=== PATIENT | male | born 1970 | race Caucasian/White ===

== ENCOUNTER → 2017-08-16 | Outpatient (CLI) | payer MEDICAID | LOC: FIMAGING 14:22 | PROVIDERS: ATTEND Physician Assistant Medical | DX: Z03.89 Encounter for observation for other suspected diseases and conditions ruled out (principal) ==

== ENCOUNTER 2017-08-25 14:02 | Day surgery (SDC) | payer MEDICAID ==
--- NOTE | 2017-08-24 15:15 | GHP ---
[f rep st] PREOP HISTORY AND PHYSICAL ADMISSION NOTE: ADMISSION DIAGNOSIS: Ureterolithiasis. HISTORY OF PRESENT ILLNESS: This is a 46-year-old gentleman who had been in the emergency room for l eft flank pain, and it was noted that he had a left 5 mm ureteral stone with mild hydronephrosis. Ri ght kidney was smaller in size. He has coronary artery disease and aortic atherosclerosis. PAST MEDICAL HISTORY: Positive for kidney stones. PAST SURGICAL HISTORY: Kidney stones, hip and umbilical hernia. MEDICATIONS: Flomax. ALLERGIES: No known drug allergies. FAMILY HISTORY: Noncontributory. SOCIAL HISTORY: Unemployed. Former tobacco smoker. Denies illicit drug use and never has consumed alcohol. REVIEW OF SYSTEMS: Negative cardiac, respiratory, GI and endocrine. PHYSICAL EXAM: VITALS: On admission, blood pressure 132/88, heart rate 77, respirations 16. O2 sat uration on room air 94%. HEAD, EARS, EYES, NOSE, THROAT: Normal. CHEST: Clear. HEART: Regular r ate and rhythm. ABDOMEN: Normal. No organomegaly, rebound or guarding. EXTREMITIES: Lower extremi ties are normal. ASSESSMENT/PLAN: He is admitted for left ureteral stone treatment. /[id number]/MODL
--- NOTE | 2017-08-25 08:30 | PDHPUP ---
History & Physical Update H&P update statement: This history and physical update is based on an assessment of the patient which was completed after admission or registration (within 24 hours), but prior to the surgery/procedure. H&P update: H&P reviewed & patient examined, no change in patient's condition since H&P completed
[2017-08-25] MEDS ORDERED: ceFAZolin 2 GM/DEXTROSE 100 ML IV ONE (14:16)
[2017-08-25] MEDS ORDERED: LR 1,000 ML IV ONE (14:18)
--- NOTE | 2017-08-25 14:30 | PDANEPAE ---
ANE Review of Systems Review of Systems: ANE Patient History - Allergies Allergies/Adverse Reactions: No Known Drug Allergies Allergy (Verified 08/25/17 08:31) ANE Labs/Vital Signs - Vital Signs Height: 187.96 cm Weight: 95.254 kg ANE Physical Exam - Airway Neck exam: FROM Mallampati Score: Class 2 Mouth exam: poor dentition - Pulmonary Pulmonary: no respiratory distress - Cardiovascular Cardiovascular: regular rate and rhythym - ASA Status ASA Status: II ANE Anesthesia Plan Anesthesia Plan: general endotracheal anesthesia
[2017-08-25] MEDS ORDERED: LIDOCAINE 2% JELLY 20 ML (UROJECT) ONE (15:53)
[2017-08-25] MEDS ORDERED: IOPAMIDOL (ISOVUE-M 300) 15 ML VIAL ONE (15:53)
[2017-08-25] MEDS ORDERED: MIDAZOLAM 2 MG/2 ML VIAL ONE (15:54)
[2017-08-25] MEDS ORDERED: PROPOFOL 200 MG/20 ML VIAL ONE (15:55)
[2017-08-25] MEDS ORDERED: LIDOCAINE 2% 100 MG/5 ML SYR ONE (15:55)
[2017-08-25] MEDS ORDERED: fentaNYL 250 MCG/5 ML INJ ONE (15:55)
[2017-08-25] MEDS ORDERED: METOCLOPRAMIDE 10 MG/2 ML VIAL ONE (15:55)
[2017-08-25] MEDS ORDERED: ROCURONIUM 50 MG/5 ML VIAL ONE (15:55)
[2017-08-25] MEDS ORDERED: GLYCOPYRROLATE 0.2 MG/1 ML VIAL ONE ×2 (16:43)
[2017-08-25] MEDS ORDERED: NEOSTIGMINE METHYLSULFATE 5 MG/5 ML SYR ONE (16:43)
[2017-08-25] MEDS ORDERED: ONDANSETRON 4 MG/2 ML VIAL IVP PRN (17:10)
[2017-08-25] MEDS ORDERED: fentaNYL 100 MCG/2 ML INJ IVP PRN (17:10)
[2017-08-25] MEDS ORDERED: NALOXONE HCL 0.4 MG/ML INJ IVP PRN (17:10)
[2017-08-25] MEDS ORDERED: ALBUTEROL 3 ML DEYVIAL IH PRN (17:10)
--- NOTE | 2017-08-25 17:10 | POSTOPPROG ---
Post Op Note Date of Operation: 08/25/17 Surgeon: Prasanna Basurto Anesthesia: LMA Pre-op Diagnosis: ureterolithiasis Post-op Diagnosis: same Indication: same Procedure: ureteroscopy--dictated Inf/Abcess present in the surg proc area at time of surgery?: No EBL: Minimal Drains: Other (stent, stone for analysis)
--- NOTE | 2017-08-25 17:11 | POSTANESTH ---
Post Anesthetic Evaluation Cardiovascular Status: Similar to Pre-Op Cond Respiratory Status: Similar to Pre-op Cond. Level of Consciousness/Mental Status: Mildly Sleepy, Arousable Pain Control: Adequate, Prn Tx Ordered Nausea/Vomiting Control: Adequate, Prn Tx Ordered Complications Possibly Related to Anesthesia: None Noted
--- NOTE | 2017-08-25 17:34 | GOP ---
[f rep st] OPERATIVE REPORT DATE OF OPERATION: 08/25/2017 SURGEON: Prasanna Basurto MD PREOPERATIVE DIAGNOSIS: Left ureterolithiasis with pain and hydronephrosis. POSTOPERATIVE DIAGNOSIS: Left ureterolithiasis with pain and hydronephrosis. PROCEDURE PERFORMED: Cystoscopy, retrograde ureteropyelogram, dilation of ureter, fluoroscopy, and laser lithotripsy and extraction of stone and placement of a stent. FINDINGS: stone and hydro with hutch tics DESCRIPTION OF PROCEDURE: This gentleman underwent general anesthesia, prepped and draped in normal sterile fashion. After appropriate time-out, the scope was passed into the bladder under direct vision and he had Hutch diverticula bilaterally. I was able to cannulate the left ureteral orifice and pass a guidewire up beyond the stone and then the ureteral access sheath and the inner working part, which dilated the ureter. Then, I went up with the scope and the laser lithotrite, fractured the stone, and then extracted it. Because of the size of the stone and the inflammation, at that point a ureteral stent was passed under fluoroscopic control, curl in the renal pelvis and curl in the bladder. I placed Urojet into the urethra and a 16 Martinez catheter. We will have them remove the catheter prior to discharge. He will be discharged home to see me in a week for stent removal. /[id number]/MODL MTDD
[2017-08-25 18:05] VITALS: BP 144/96
== END 2017-08-25 18:25 | disposition home or self-care (01) ==
LOC: FSGY 14:02
PROVIDERS: ATTEND Specialist
PROC: 0T778DZ Dilation of Left Ureter with Intraluminal Device, Via Natural or Artificial Opening Endoscopic (ICD-10-PCS; principal; 2017-08-25 15:00)
PROC: 0TC78ZZ Extirpation of Matter from Left Ureter, Via Natural or Artificial Opening Endoscopic (ICD-10-PCS; principal; 2017-08-25 15:00)
PROC: BT17YZZ Fluoroscopy of Left Ureter using Other Contrast (ICD-10-PCS; principal; 2017-08-25 15:00)
PROC: 0TF78ZZ Fragmentation in Left Ureter, Via Natural or Artificial Opening Endoscopic (ICD-10-PCS; principal; 2017-08-25 15:00)
DX: N13.2 Hydronephrosis with renal and ureteral calculous obstruction (principal); I25.10 Atherosclerotic heart disease of native coronary artery without angina pectoris; I70.0 Atherosclerosis of aorta; Z87.442 Personal history of urinary calculi; Z87.891 Personal history of nicotine dependence
CPT/HCPCS: 52356; 76001; C1758; C1769; 82365-90; C2625; J0690; J2001; J2250; J2704; J2710; J2765; J3010; Q9967